=== PATIENT | female | born 2000 | race African-American/Black ===

== ENCOUNTER 2021-01-02 15:29 | Emergency (ER) | payer MEDICAID, OTHER ==
[~2021-01-02] VITALS: Ht 167.6 cm; Wt 84.4 kg
[2021-01-02] MEDS ORDERED: ACETAMINOPHEN 500 MG TAB PO ONE (17:15)
[2021-01-02 17:16] VITALS: BP 116/75
== END 2021-01-02 18:37 | disposition home or self-care (01) ==
LOC: ER 15:29
DX: S76.011A Strain of muscle, fascia and tendon of right hip, initial encounter (principal); R51.9 Headache, unspecified; V43.62XA Car passenger injured in collision with other type car in traffic accident, initial encounter; Y93.89 Activity, other specified; Y92.488 Other paved roadways as the place of occurrence of the external cause; Y99.8 Other external cause status
CPT/HCPCS: 70450

== ENCOUNTER → 2021-12-15 | Outpatient (CLI) | payer MEDICAID ==
[2021-12-15 11:40] LABS: Basophils # (auto) 0.1 10 ^3/uL (0-0.2); Basophils % (auto) 1.4 % (0.0-2.0); Eosinophils # (auto) 0.2 10 ^3/uL (0-0.8); Eosinophils % (auto) 2.9 % (0.0-7.0); Hematocrit 29.3 % (36.0-46.0); Hemoglobin 9.9 g/dL (12.2-16.2); Lymphocytes # (auto) 1.4 10 ^3/uL (0.4-5.4); Mean Corpuscular Hemoglobin 32.2 pg (28.0-32.0); Mean Corpuscular Hgb Conc. 33.8 g/dL (32.0-36.0); Mean Corpuscular Volume 95.2 fL (80.0-100.0); Monocytes # (auto) 0.4 10 ^3/uL (0-1.3); Monocytes % (auto) 7.2 % (0.0-12.0); Neutrophils # (auto) 3.6 10 ^3/uL (1.6-8.6); Neutrophils % (auto) 63.5 % (37.0-80.0); Nucleated Red Blood Cells % 0.1 %; Red Blood Cells 3.07 10^6/uL (4.0-5.20); White Blood Cell 5.6 10^3/uL (4.4-10.8)
[2021-12-15 13:03] LABS: Amphetamine Screen, Urine NEGATIVE (NEGATIVE); Barbiturate Scree,Urine NEGATIVE (NEGATIVE); Benzodiazephine Screen, Urine NEGATIVE (NEGATIVE); Cocaine Screen, Urine NEGATIVE (NEGATIVE)
[2021-12-15 13:12] LABS: Cannabinoid Screen, Urine POSITIVE (NEGATIVE); Opiate Scree,Urine NEGATIVE (NEGATIVE); Phencyclidine Screen, Urine NEGATIVE (NEGATIVE)
== END | disposition home or self-care (01) ==
LOC: LAB 10:22
PROVIDERS: ATTEND Obstetrics & Gynecology
DX: Z34.80 Encounter for supervision of other normal pregnancy, unspecified trimester (principal); Z31.430 Encounter of female for testing for genetic disease carrier status for procreative management; N39.0 Urinary tract infection, site not specified; Z36.0 Encounter for antenatal screening for chromosomal anomalies
CPT/HCPCS: 36415; 80307; 83021; 83036; 84112; 84702; 85025; 85660; 86592; 86703; 86762; 86850; 86900; 86901; 87086; 87340

== ENCOUNTER 2021-12-30 10:31 | Emergency (ER) | payer MEDICAID ==
[~2021-12-30] VITALS: Ht 167.6 cm; Wt 94.8 kg
[2021-12-30 11:15] VITALS: BP 103/63
[2021-12-30] MEDS ORDERED: PENICILLIN G BENZ 1200000 UNITS/2 ML SYRG IM ONE (12:00)
== END 2021-12-30 12:28 | disposition home or self-care (01) ==
LOC: ER 10:31
DX: O98.113 Syphilis complicating pregnancy, third trimester (principal); Z3A.32 32 weeks gestation of pregnancy
CPT/HCPCS: 81002; 81025; 96372; 99283; J0561

== ENCOUNTER 2022-01-06 10:19 | Emergency (ER) | payer MEDICAID ==
[~2022-01-06] VITALS: Ht 167.6 cm; Wt 96.2 kg
[2022-01-06 10:20] VITALS: BP 115/81
[2022-01-06] MEDS: PENICILLIN G PROC & BENZAT 1200000 UNITS/2 ML SYRG IM ONE (11:49)
== END 2022-01-06 12:18 | disposition home or self-care (01) ==
LOC: ER 10:19
DX: F41.9 Anxiety disorder, unspecified (principal); Z20.2 Contact with and (suspected) exposure to infections with a predominantly sexual mode of transmission
CPT/HCPCS: 96372; 99283; J0558

== ENCOUNTER 2022-01-13 08:37 | Emergency (ER) | payer MEDICAID ==
[~2022-01-13] VITALS: Ht 165.1 cm; Wt 94.8 kg
[2022-01-13 09:21] VITALS: BP 114/71
[2022-01-13] MEDS ORDERED: PENICILLIN G PROC & BENZAT 1200000 UNITS/2 ML SYRG IM ONE (10:15)
== END 2022-01-13 10:42 | disposition home or self-care (01) ==
LOC: ER 08:37
DX: O98.119 Syphilis complicating pregnancy, unspecified trimester (principal); F41.9 Anxiety disorder, unspecified; Z20.2 Contact with and (suspected) exposure to infections with a predominantly sexual mode of transmission; Z3A.00 Weeks of gestation of pregnancy not specified
CPT/HCPCS: 96372; 99283; J0558

== ENCOUNTER → 2022-01-20 | Outpatient (CLI) | payer MEDICAID ==
[~2022-01-20] MED LIST: ACYC1CAP23 PO; CEPH-322 PO; PREN1TAB71 OR
== END | disposition home or self-care (01) ==
LOC: LAB 11:43
PROVIDERS: ATTEND Obstetrics & Gynecology
DX: Z34.00 Encounter for supervision of normal first pregnancy, unspecified trimester (principal); N39.0 Urinary tract infection, site not specified
CPT/HCPCS: 86695; 86696

== ENCOUNTER 2022-01-21 08:25 | Observation (INO) | payer MEDICAID ==
[2022-01-21] MEDS ORDERED: ACYC1CAP23 PO (11:28)
[2022-01-21] MEDS ORDERED: CEPH-322 PO (11:28)
[2022-01-21] MEDS ORDERED: PREN1TAB71 OR (11:28)
== END 2022-01-21 12:24 | disposition home or self-care (01) ==
LOC: LDRP 10:00
PROVIDERS: ADMIT Obstetrics & Gynecology; ATTEND Obstetrics & Gynecology
DX: O36.8330 Maternal care for abnormalities of the fetal heart rate or rhythm, third trimester, not applicable or unspecified (principal); O26.893 Other specified pregnancy related conditions, third trimester; A53.9 Syphilis, unspecified; B00.9 Herpesviral infection, unspecified; Z3A.37 37 weeks gestation of pregnancy
CPT/HCPCS: 59025; 76818; 81002; G0378

== ENCOUNTER 2022-01-27 13:40 | Observation (INO) | payer MEDICAID | END 2022-01-27 16:00 | disposition home or self-care (01) | LOC: LDRP 13:53 | PROVIDERS: ADMIT Obstetrics & Gynecology; ATTEND Obstetrics & Gynecology | DX: O98.113 Syphilis complicating pregnancy, third trimester (principal); A53.9 Syphilis, unspecified; O98.513 Other viral diseases complicating pregnancy, third trimester; B00.9 Herpesviral infection, unspecified; O62.9 Abnormality of forces of labor, unspecified; Z3A.38 38 weeks gestation of pregnancy | CPT/HCPCS: 59025; 76818; 81002; 94760; G0378 ==

== ENCOUNTER 2022-02-01 04:52 | Inpatient (IN) | payer MEDICAID ==
[2022-01-30 19:09] LABS: Basophils # (auto) 0 10 ^3/uL (0-0.2); Basophils % (auto) 0.6 % (0.0-2.0); Eosinophils # (auto) 0.2 10 ^3/uL (0-0.8); Eosinophils % (auto) 2.8 % (0.0-7.0); Hematocrit 30.3 % (36.0-46.0); Lymphocytes # (auto) 1.5 10 ^3/uL (0.4-5.4); Lymphocytes % (auto) 25.4 % (10.0-50.0); Mean Corpuscular Hemoglobin 30.3 pg (28.0-32.0); Mean Corpuscular Volume 91.9 fL (80.0-100.0); Monocytes # (auto) 0.5 10 ^3/uL (0-1.3); Monocytes % (auto) 8.3 % (0.0-12.0); Neutrophils # (auto) 3.6 10 ^3/uL (1.6-8.6); Neutrophils % (auto) 62.9 % (37.0-80.0); Nucleated Red Blood Cells % 0.1 %; Red Blood Cells 3.29 10^6/uL (4.0-5.20); Red Cell Distribution Width 14.5 % (11.8-14.3); White Blood Cell 5.8 10^3/uL (4.4-10.8)
[2022-01-30 19:27] LABS: Albumin 2.8 g/dL (3.4-5.0); Calcium 9.2 mg/dL (8.5-10.1); Potassium 3.8 mmol/L (3.5-5.1)
[2022-01-30 19:30] LABS: BUN/Creatinine Ratio 4.7; Bilirubin, Total 0.4 mg/dL (0.2-1.0); Total Protein 7.2 g/dL (6.4-8.2)
[2022-01-30 20:09] LABS: INR 0.94 (0.9-1.15); Partial Thromboplastin Time 28.2 sec (23.6-33.0)
[~2022-02-01] VITALS: Ht 165.1 cm; Wt 95.3 kg
[2022-02-01] VITALS (17 sets, daily range): BP systolic 104–128; BP diastolic 48–86
[~2022-02-01 04:52] MED LIST changes: -ACYC1CAP23 PO; -CEPH-322 PO
[2022-02-01] MEDS ORDERED: LACTATED RINGER'S 1,000 ML IV ONE (05:15)
[2022-02-01 05:57] LABS: Alcohol, Urine < 3.0 mg/dL (0-10); Amphetamine Screen, Urine NEGATIVE (NEGATIVE); Barbiturate Scree,Urine NEGATIVE (NEGATIVE); Benzodiazephine Screen, Urine NEGATIVE (NEGATIVE); Cannabinoid Screen, Urine NEGATIVE (NEGATIVE); Cocaine Screen, Urine NEGATIVE (NEGATIVE); Opiate Scree,Urine NEGATIVE (NEGATIVE); Phencyclidine Screen, Urine NEGATIVE (NEGATIVE)
[2022-02-01] MEDS ORDERED: ceFAZolin 1GM/50ML 50 ML IV ONE ×3 (06:30→16:30)
[2022-02-01 07:16] LABS: Urine Blood Normal /uL (Negative); Urine Specific Gravity 1.004 (1.001-1.035)
[2022-02-01] MEDS ORDERED: SUCCINYLCHOLINE CHLORIDE 20 MG/ML 10ML VIAL IV ONE (07:19)
[2022-02-01 07:23] LABS: Urine WBC 8 /hpf (0 - 5); Urine WBC Clumps PRESENT /hpf (None Seen)
[2022-02-01 07:24] LABS: Urine Bacteria FEW /hpf (None Seen); Urine Budding Yeast Few /hpf (None Seen)
[2022-02-01] MEDS ORDERED: fentaNYL CITRATE 100 MCG/2 ML VL ONE (07:30)
[2022-02-01] MEDS ORDERED: MORPHINE SULF PF 5 MG/10 ML VIAL ONE (07:30)
[2022-02-01] MEDS ORDERED: PHENYLEPHRINE HCL 10 MG/ML VL ONE (07:32)
[2022-02-01] MEDS ORDERED: GLYCOPYRROLATE 0.2 MG/ML 1ML VIAL ONE (07:32)
[2022-02-01] MEDS ORDERED: oxyTOCIN 10 UNIT/ML 10ML VIAL ONE (07:32)
[2022-02-01] MEDS ORDERED: ePHEDrine SULFATE 50 MG/ML AMP ONE (07:32)
[2022-02-01] MEDS ORDERED: ONDANSETRON HCL 4 MG/2 ML VIAL ONE (07:32)
[2022-02-01] MEDS ORDERED: BUPIVACAINE/DEXTROSE MPF 0.75% 2 ML AMP IT ONE ×2 (07:32→07:46)
[2022-02-01] MEDS ORDERED: KETOROLAC TROMETH 30 MG/ML 1ML VIAL ONE (07:32)
[2022-02-01] MEDS ORDERED: ceFAZolin 1GM VL ONE (07:41)
[2022-02-01] MEDS ORDERED: MIDAZOLAM HCL 2MG/2ML 2ml VIAL (1mg/ml) ONE (07:57)
[2022-02-01] MEDS ORDERED: KETAMINE 50mg/ML 10ml Vial (500mg/10ml) IV ONE (08:13)
[2022-02-01] MEDS ORDERED: FAMOTIDINE (10MG/ML) 2ML VL IV PRN (09:05)
[2022-02-01] MEDS ORDERED: diphenhdrAMINE HCL 50 MG/1 ML VL IV PRN (09:15)
[2022-02-01] MEDS ORDERED: DexAMETHasone SOD PHOS 10MG/1ML VIAL INJ IV PRN (09:15)
[2022-02-01] MEDS ORDERED: NALOXONE HCL 0.4 MG/ML VIAL IV PRN ×2 (09:15)
[2022-02-01] MEDS ORDERED: ONDANSETRON HCL 4 MG/2 ML VIAL IV PRN ×2 (09:15)
[2022-02-01] MEDS ORDERED: KETOROLAC TROMETH 30 MG/ML 1ML VIAL IV PRN ×2 (09:15→12:30)
[2022-02-01] MEDS ORDERED: ePHEDrine SULFATE 50 MG/ML AMP IV PRN (09:30)
[2022-02-01] MEDS ORDERED: GUM (CHEWING) 1 GUM CHEW CHEW ONE (09:30)
[2022-02-01] MEDS ORDERED: MORPHINE SULFATE 4 MG/ML SYR/VIAL IV PRN (09:30)
[2022-02-01] MEDS ORDERED: SIMETHICONE 80 MG CHEWABLE TABLET PO PRN (09:30)
[2022-02-01] MEDS: LACTATED RINGER'S 1,000 ML IV SCH ×2 (11:07→23:27)
[2022-02-01] MEDS ORDERED: DOCU100C10 PO (18:31)
[2022-02-01] MEDS ORDERED: HYDR1TAB97 PO (18:31)
[2022-02-01] MEDS ORDERED: IBUP600T28 PO (18:36)
[2022-02-01] MEDS: DOCUSATE SOD 100 MG CAP PO SCH (23:20)
[2022-02-02] VITALS (12 sets, daily range): BP systolic 109–125; BP diastolic 68–88
[2022-02-02] MEDS ORDERED: HYDROcodone-ACET 5/325MG TAB PO PRN (06:00)
[2022-02-02 06:08] LABS: Basophils # (auto) 0 10 ^3/uL (0-0.2); Basophils % (auto) 0.5 % (0.0-2.0); Eosinophils # (auto) 0.1 10 ^3/uL (0-0.8); Eosinophils % (auto) 1.8 % (0.0-7.0); Hematocrit 25.1 % (36.0-46.0); Hemoglobin 8.5 g/dL (12.2-16.2); Lymphocytes % (auto) 13.6 % (10.0-50.0); Mean Corpuscular Hemoglobin 31.1 pg (28.0-32.0); Mean Corpuscular Hgb Conc. 33.9 g/dL (32.0-36.0); Mean Corpuscular Volume 91.5 fL (80.0-100.0); Monocytes # (auto) 0.5 10 ^3/uL (0-1.3); Monocytes % (auto) 6.7 % (0.0-12.0); Neutrophils # (auto) 5.6 10 ^3/uL (1.6-8.6); Neutrophils % (auto) 77.4 % (37.0-80.0); Red Blood Cells 2.74 10^6/uL (4.0-5.20); Red Cell Distribution Width 14.5 % (11.8-14.3); White Blood Cell 7.3 10^3/uL (4.4-10.8)
[2022-02-02] MEDS: FERROUS SULFATE 325mg EC TAB PO SCH ×2 (08:45→18:01)
[2022-02-02] MEDS: IBUPROFEN 600 MG TAB PO SCH ×2 (12:11→18:01)
[2022-02-02] MEDS: HYDROcodone-ACET 5/325MG TAB PO PRN ×2 (14:12→21:33)
[2022-02-02] MEDS: DOCUSATE SOD 100 MG CAP PO SCH (21:33)
[2022-02-03] MEDS: IBUPROFEN 600 MG TAB PO SCH ×4 (00:01→17:56)
[2022-02-03 03:20] VITALS: BP 103/66
[2022-02-03 07:00] VITALS: BP 115/70
[2022-02-03] MEDS: FERROUS SULFATE 325mg EC TAB PO SCH ×2 (08:59→17:56)
[2022-02-03 11:00] VITALS: BP 121/78
[2022-02-03 15:30] VITALS: BP 116/70
[2022-02-03 19:00] VITALS: BP 118/72
[2022-02-03] MEDS: DOCUSATE SOD 100 MG CAP PO SCH (22:28)
[2022-02-03 23:15] VITALS: BP 114/75
[2022-02-04 03:30] VITALS: BP 110/71
[2022-02-04 07:30] VITALS: BP 122/80
[2022-02-04 11:10] VITALS: BP 122/77
== END 2022-02-04 12:20 | disposition home or self-care (01) | DRG 540 ==
LOC: EDSTATUS 04:52 → LDRP 04:58
PROVIDERS: ADMIT Obstetrics & Gynecology; ATTEND Obstetrics & Gynecology
PROC: 10D00Z1 Extraction of Products of Conception, Low, Open Approach (ICD-10-PCS; principal; 2022-02-01 07:40)
DX: O98.52 Other viral diseases complicating childbirth (principal); A53.9 Syphilis, unspecified; Z20.822 Contact with and (suspected) exposure to COVID-19; B00.9 Herpesviral infection, unspecified; Z37.0 Single live birth; Z3A.39 39 weeks gestation of pregnancy
CPT/HCPCS: 36415; 59025; 80053; 80307; 81001; 85025; 85610; 85730; 86592; 86850; 86900; 86901; 94760; 94762; 96360; 96361; G0378; J0330; J0690; J1885; J2250; J2405; J2590

== ENCOUNTER 2022-03-21 15:27 | Emergency (ER) | payer MEDICAID ==
[~2022-03-21] VITALS: Ht 167.6 cm; Wt 87.1 kg
[~2022-03-21 15:27] MED LIST changes: +DOCU100C10 PO; +HYDR1TAB97 PO; +IBUP600T28 PO
[2022-03-21 15:54] VITALS: BP 101/71
[2022-03-22] MEDS ORDERED: FLUC150T2 PO (18:04)
== END 2022-03-22 01:36 | disposition left against medical advice (07) ==
LOC: ER 15:27
DX: L29.2 Pruritus vulvae (principal); Z53.21 Procedure and treatment not carried out due to patient leaving prior to being seen by health care provider

== ENCOUNTER 2022-03-22 16:09 | Emergency (ER) | payer MEDICAID ==
[~2022-03-22] VITALS: Ht 165.1 cm; Wt 86.2 kg
[2022-03-22 16:30] VITALS: BP 109/74
[2022-03-22] MEDS ORDERED: FLUC150T2 PO (18:04)
== END 2022-03-22 18:15 | disposition home or self-care (01) ==
LOC: ER 16:09
DX: B37.3 Candidiasis of vulva and vagina (principal); D28.1 Benign neoplasm of vagina